=== PATIENT | male | born 1960 | race Caucasian/White ===

== ENCOUNTER 2025-05-02 09:00 | Emergency (ER) | payer MEDICARE, BC ==
[2025-05-02] MEDS ORDERED: Naloxone 0.4 MG/ML SDV IVPUSH PRN (09:09)
[2025-05-02] MEDS: Sodium Chloride 0.9% 10 ML Syringe FLUSH ONE (09:12)
[2025-05-02] MEDS: Iopamidol 755 Mg/ML 100 ML Bottle IVPUSH ONE (09:12)
[2025-05-02] MEDS: fentaNYL 100 MCG/2 ML SDV IVPUSH ONE (09:49)
[2025-05-02] MEDS: Ondansetron 4 MG/2 ML SDV IVPUSH ONE ×2 (09:49→11:08)
[2025-05-02 10:02] LABS: BASOPHILS ABSOLUTE AUTO 0.0 K/mm3 (0.0-0.2); BASOPHILS PERCENT AUTO 0.2 % (0.0-1.0); EOSINOPHILS ABSOLUTE AUTO 0.0 K/mm3 (0.0-0.4); EOSINOPHILS PERCENT AUTO 0.0 % (0.0-6.0); IMMATURE GRAN ABSOLUTE AUTO 0.09 K/mm3 (0.00-0.05); IMMATURE GRAN PERCENT AUTO 0.9 % (0.0-0.4); LYMPHOCYTES ABSOLUTE AUTO 0.8 K/mm3 (1.0-4.8); LYMPHOCYTES PERCENT AUTO 7.5 % (24.0-44.0); MEAN PLATELET VOLUME 11.0 fl (9.4-12.4); MONOCYTES ABSOLUTE AUTO 0.4 K/mm3 (0.0-0.8); MONOCYTES PERCENT AUTO 4.1 % (0.0-8.0); NEUTROPHILS ABSOLUTE AUTO 8.8 K/mm3 (1.8-7.7); NEUTROPHILS PERCENT AUTO 87.3 % (41.0-71.0); NRBC ABSOLUTE 0.00 (0.00-0.02); NRBC PERCENT 0.0 % (0.0-0.2); PLATELET COUNT,PLT 192 K/mm3 (150-400); RED BLOOD CELL COUNT 4.68 M/mm3 (4.52-5.90); WHITE BLOOD CELL COUNT,WBC 10.05 K/mm3 (3.9-11.3)
[2025-05-02 10:08] LABS: INR 1.06
[2025-05-02 10:11] LABS: BUPRENORPHINE SCREEN,URINE NEGATIVE (CUTOFF=10); METHADONE SCREEN, URINE NEGATIVE (CUT0FF=200); METHAMPHETAMINES SCREEN, URINE NEGATIVE (CUTOFF=500); OXYCODONE SCREEN,URINE NEGATIVE (CUT0FF=100); THC SCREEN,URINE 20 NG/ML NEGATIVE (CUTOFF=50)
[2025-05-02 10:17] LABS: AMPHETAMINES SCREEN, URINE NEGATIVE (CUTOFF=500)
[2025-05-02 10:25] LABS: A/G RATIO 1.2 (1-2); ALANINE AMINOTRANSFERASE,ALT 55 U/L (16-63); ASPARTATE AMNIOTRANSFERASE,AST 35 U/L (15-37); BILIRUBIN TOTAL 0.6 mg/dL (0.2-1.0); BLOOD UREA NITROGEN,BUN 24 mg/dL (7-18); CARBON DIOXIDE,CO2 27 mEq/L (21-32); CHLORIDE,CL 99 mEq/L (98-107); CREATINE KINASE,CK 383 U/L (39-308); CREATININE 1.1 mg/dL (0.7-1.3); ESTIMATED GFR 75 mL/min (>60); GLUCOSE RANDOM 148 mg/dL (70-99); POTASSIUM,K 4.2 mEq/L (3.5-5.1); PROTEIN TOTAL,TP 7.1 g/dl (6.4-8.2); SODIUM,NA 136 mEq/L (136-145)
[2025-05-02 10:41] LABS: ETHANOL BLOOD MEDICAL 0.00 gm% (0.00)
== END 2025-05-02 12:05 ==
LOC: JD.ED 09:00
DX: S62.102B Fracture of unspecified carpal bone, left wrist, initial encounter for open fracture (principal); S32.001A Stable burst fracture of unspecified lumbar vertebra, initial encounter for closed fracture; W17.89XA Other fall from one level to another, initial encounter
CPT/HCPCS: 29125; 36415; 70450; 71260; 72125; 73110; 73200; 74177; 80053; 80306; 80307; 82550; 83690; 83735; 85025; 85610; 86850; 86900; 86901; 96374; 96375; 96376; 99285; J0690; J0696; J1171; J2405; J3010; J7030; Q9967; 99284